=== PATIENT | female | born 1960 | race African-American/Black ===

== ENCOUNTER 2017-09-21 06:06 | Day surgery (SDC) | payer MEDICAID ==
[~2017-09-21] VITALS: Ht 162.6 cm; Wt 54.4 kg
[~2017-09-21 06:06] MED LIST: CARI350T27 PO; CYPR4TAB33 PO; FERR325T6 PO; NITR0.4T49 SL; PANT40TA4 PO; TYLENOL #4 PO
[2017-09-21] MEDS ORDERED: SKIN ADHESIVE 0.7 GM EA TOP ONE (06:59)
[2017-09-21] MEDS ORDERED: BUPIVACAINE HCL/PF 0.5% (5MG/ML) 10ML ONE (07:00)
[2017-09-21] MEDS ORDERED: PROPOFOL 200MG/20ML VIAL IV ONE ×2 (07:16→08:13)
[2017-09-21] MEDS: LACTATED RINGERS 1,000 ML IV SCH ×2 (07:35→07:36)
[2017-09-21] MEDS ORDERED: FENTANYL CITRATE/PF 50MCG/ML 2ML VIAL ONE (07:35)
[2017-09-21] MEDS ORDERED: ONDANSETRON HCL 4MG/2ML VIAL ONE (08:35)
[2017-09-21] MEDS ORDERED: ONDANSETRON HCL 4MG/2ML VIAL IM PRN (09:00)
[2017-09-21] MEDS ORDERED: LABETALOL 5MG/ML SYR 20 MG/4 ML SYRINGE IV PRN (09:00)
[2017-09-21] MEDS ORDERED: FENTANYL CITRATE/PF 50MCG/ML 2ML VIAL IV PRN (09:00)
[2017-09-21 09:59] VITALS: BP 140/78
== END 2017-09-21 11:00 | disposition home or self-care (01) ==
LOC: OR 06:06
PROVIDERS: ATTEND Surgery
DX: D17.21 Benign lipomatous neoplasm of skin and subcutaneous tissue of right arm (principal); M79.89 Other specified soft tissue disorders; Z98.890 Other specified postprocedural states; Z79.899 Other long term (current) drug therapy; I10 Essential (primary) hypertension; J45.909 Unspecified asthma, uncomplicated; D64.89 Other specified anemias; F17.210 Nicotine dependence, cigarettes, uncomplicated
CPT/HCPCS: 25073; 88304; C1768; G0168; J2405; J3010; J3490; J7120; J2704

== ENCOUNTER 2018-01-27 19:28 | Inpatient (IN) | payer MEDICAID ==
[~2018-01-27] VITALS: Ht 162.6 cm; Wt 53.5 kg
[~2018-01-27 19:28] MED LIST changes: -CYPR4TAB33 PO; +CYPR4TAB43 PO
[2018-01-27] MEDS ORDERED: ONDANSETRON HCL 4MG/2ML VIAL IV STA (19:53)
[2018-01-27] MEDS ORDERED: SODIUM CHLORIDE 0.9% 1,000 ML IV ONE ×2 (19:53→21:32)
[2018-01-27] MEDS ORDERED: FAMOTIDINE 20MG/2ML VIAL IV STA (19:53)
[2018-01-27] MEDS ORDERED: MORPHINE SULFATE 4 MG/ML CPJ (NOT FOR IM USE) IV STA (19:53)
[2018-01-27 20:58] LABS: BASOPHILS % 0.4 % (0.0-2.0); EOSINOPHILS % 0.1 % (0.0-5.0); HEMATOCRIT. 39.5 % (36.0-48.0); HEMOGLOBIN. 13.3 g/dL (12.0-16.0); LYMPHOCYTES % 14.4 % (20.0-50.0); MEAN CORPUSCULAR HEMOGLOBIN 28.2 pg (28.0-32.0); MEAN CORPUSCULAR VOLUME 83.8 fL (81.0-99.0); MEAN PLATELET VOLUME 8.6 fl (7.4-10.4); MONOCYTES % 3.5 % (2.0-8.0); NEUTROPHILS % 81.6 % (40.0-76.0); PLATELET 409 x1000/uL (130-400); RED BLOOD CELL COUNT 4.71 mill/uL (4.2-5.4); RED CELL DISTRIBUTION WIDTH 13.4 % (11.6-14.6)
[2018-01-27 21:01] LABS: CHLORIDE 105 mEq/L (98-107)
[2018-01-27 21:05] LABS: ETHANOL BLOOD < 10 mg/dL
[2018-01-27] MEDS ORDERED: LORAZEPAM 2MG/ML CPJ IV NR (21:15)
[2018-01-27 21:33] LABS: CLARITY URINE CLOUDY (CLEAR); COLOR URINE YELLOW (YELLOW); KETONES URINE 3+ (NEGATIVE); LEUKOCYTE ESTERASE URINE TRACE (NEGATIVE); NITRITE URINE NEGATIVE (NEGATIVE); OCCULT BLOOD URINE NEGATIVE (NEGATIVE); PROTEIN URINE TRACE (NEGATIVE); SPECIFIC GRAVITY URINE 1.024 (1.005-1.030); UROBILINOGEN URINE 0.2 E.U./dL (0.2-1.0)
[2018-01-27 21:45] LABS: *AMPHETAMINES SCREEN URINE NEGATIVE (NEGATIVE); *BARBITURATES SCREEN URINE NEGATIVE (NEGATIVE); *BENZODIAZEPINES SCREEN URINE NEGATIVE (NEGATIVE); *COCAINE SCREEN URINE NEGATIVE (NEGATIVE); METHADONE URINE SCREEN NEGATIVE (NEGATIVE); OPIATES URINE SCREEN PRESUMTIVE POSITIVE (NEGATIVE)
[2018-01-27 21:46] LABS: CANNABINOID URINE SCREEN PRESUMTIVE POSITIVE (NEGATIVE); PHENCYCLIDINE URINE SCREEN NEGATIVE (NEGATIVE)
[2018-01-27] MEDS ORDERED: IOHEXOL-300 100 ML BOTTLE ONE (21:56)
[2018-01-27] MEDS ORDERED: SODIUM CHLORIDE 0.9% 1,000 ML IV SCH (23:33)
[2018-01-27] MEDS ORDERED: ACETAMINOPHEN 650MG/20.3ML UDC GT PRN (23:45)
[2018-01-27] MEDS ORDERED: ACETAMINOPHEN 650MG SUPP PR PRN (23:45)
[2018-01-27] MEDS ORDERED: MAGNESIUM/ALUMINUM HYDROXIDE/SIMETHICONE 30ML UDC PO PRN (23:45)
[2018-01-27] MEDS ORDERED: DEXTROSE 50% WATER 50ML SYRINGE IV PRN (23:45)
[2018-01-27] MEDS ORDERED: DOCUSATE SODIUM 100MG CAPSULE PO PRN (23:45)
[2018-01-27] MEDS ORDERED: IPRATROPIUM/ALBUTEROL 0.5-3(2.5)MG/3ML NEB INH PRN (23:45)
[2018-01-27] MEDS ORDERED: DIPHENHYDRAMINE 50MG/ML VIAL IV PRN (23:45)
[2018-01-27] MEDS ORDERED: HYDROCODONE/ACETAMINOPHEN 5/325MG TABLET PO PRN (23:45)
[2018-01-27] MEDS ORDERED: ACETAMINOPHEN 325MG TABLET PO PRN (23:45)
[2018-01-27] MEDS ORDERED: ONDANSETRON HCL 4MG/2ML VIAL IV PRN (23:45)
[2018-01-27] MEDS ORDERED: NA PHOS,M-B/NA PHOS,DI-BA ENEMA 118ML PR PRN (23:45)
[2018-01-27] MEDS ORDERED: GUAIFENESIN 200MG/10ML SUGAR FREE UDC PO PRN (23:45)
[2018-01-27] MEDS ORDERED: CLONIDINE 0.1MG TABLET PO PRN (23:45)
[2018-01-28] VITALS (7 sets, daily range): BP systolic 100–138; BP diastolic 46–92
[2018-01-28] MEDS: HYDROCODONE/ACETAMINOPHEN 10/325MG TABLET PO PRN ×2 (02:37→17:50)
[2018-01-28] MEDS: SODIUM CHLORIDE 0.45% 1,000 ML IV SCH ×2 (03:08→16:19)
[2018-01-28 06:01] LABS: BASOPHILS % 0.5 % (0.0-2.0); HEMATOCRIT. 35.8 % (36.0-48.0); HEMOGLOBIN. 12.1 g/dL (12.0-16.0); LYMPHOCYTES % 23.9 % (20.0-50.0); MEAN CORPUSCULAR HEMOGLOBIN 28.3 pg (28.0-32.0); MEAN PLATELET VOLUME 8.7 fl (7.4-10.4); MONOCYTES % 7.7 % (2.0-8.0); NEUTROPHILS % 67.9 % (40.0-76.0); PLATELET 352 x1000/uL (130-400); RED BLOOD CELL COUNT 4.26 mill/uL (4.2-5.4); RED CELL DISTRIBUTION WIDTH 13.7 % (11.6-14.6)
[2018-01-28] MEDS: SODIUM CHLORIDE 0.9% INJ 3ML FLUSH IVF SCH ×2 (06:03→12:22)
[2018-01-28 06:06] LABS: CHLORIDE 108 mEq/L (98-107)
[2018-01-28 06:13] LABS: LDL CHOLESTEROL 154 mg/dL (5-100)
[2018-01-28 06:14] LABS: HDL CHOLESTEROL 53 mg/dL (40-59)
[2018-01-28] MEDS: BLOOD SUGAR DIAGNOSTIC STRIP TEST SCH ×3 (06:38→17:44)
[2018-01-28] MEDS: INSULIN LISPRO 100 UNITS/ML SUBCUT SCH ×3 (07:50→17:44)
[2018-01-28] MEDS ORDERED: FAMOTIDINE 20MG/2ML VIAL IV SCH (09:00)
[2018-01-28] MEDS ORDERED: PNEUMOCOCCAL 23-VAL P-SAC VAC 0.5 ML IM ONE (10:00)
[2018-01-28] MEDS ORDERED: OMEPRAZOLE 20MG CAPSULE EXTENDED RELEASE PO SCH (15:15)
[2018-01-28] MEDS ORDERED: POTASSIUM CHLORIDE 20MEQ TABLET SR PO NR (18:45)
== END 2018-01-28 19:15 | disposition home or self-care (01) | DRG 241 ==
LOC: ER 19:55 → 6WST 23:34 → EDBEDREQ 01-28 00:02 → ENRESERV 01-28 01:28
PROVIDERS: ADMIT Family Medicine; ATTEND Family Medicine
DX: K29.70 Gastritis, unspecified, without bleeding (principal); F10.10 Alcohol abuse, uncomplicated; F17.210 Nicotine dependence, cigarettes, uncomplicated; F12.90 Cannabis use, unspecified, uncomplicated; I10 Essential (primary) hypertension; K21.9 Gastro-esophageal reflux disease without esophagitis; I25.2 Old myocardial infarction; Z79.899 Other long term (current) drug therapy
CPT/HCPCS: 36415; 71045; 74177; 80053; 80061; 80305; 81003; 82962; 83036; 83605; 83690; 85025; 90732; G0482; J2060; J2270; J2405; J3490; J7030; Q9967

== ENCOUNTER 2018-06-11 05:41 | Day surgery (SDC) | payer MEDICAID ==
[~2018-06-11] VITALS: Ht 162.6 cm; Wt 54.4 kg
[~2018-06-11 05:41] MED LIST changes: +LACTATED RINGERS 1,000 ML IV SCH
[2018-06-11] MEDS ORDERED: INDOCYANINE GREEN 25 MG VIAL IV ONE (06:09)
[2018-06-11] MEDS ORDERED: SKIN ADHESIVE 0.7 GM EA TOP ONE (06:09)
[2018-06-11] MEDS ORDERED: BUPIVACAINE HCL 0.5% (5MG/ML) 50ML ONE (06:09)
[2018-06-11 06:29] LABS: CLARITY URINE CLEAR (CLEAR); COLOR URINE YELLOW (YELLOW); KETONES URINE NEGATIVE (NEGATIVE); LEUKOCYTE ESTERASE URINE 3+ (NEGATIVE); NITRITE URINE NEGATIVE (NEGATIVE); OCCULT BLOOD URINE NEGATIVE (NEGATIVE); PH URINE 7.5 (4.5-8.0); PROTEIN URINE NEGATIVE (NEGATIVE); SPECIFIC GRAVITY URINE 1.012 (1.005-1.030); UROBILINOGEN URINE 0.2 E.U./dL (0.2-1.0)
[2018-06-11] MEDS ORDERED: PROPOFOL 200MG/20ML VIAL IV ONE (07:35)
[2018-06-11] MEDS ORDERED: ROCURONIUM BROMIDE 10MG/ML VIAL 5ML IV ONE (07:35)
[2018-06-11] MEDS ORDERED: FENTANYL CITRATE/PF 50MCG/ML 2ML VIAL ONE ×3 (07:35→08:18)
[2018-06-11] MEDS ORDERED: MIDAZOLAM HCL 2 MG/2 ML VIAL ONE (07:35)
[2018-06-11] MEDS ORDERED: NEOSTIGMINE METHYLSULFATE 1MG/ML 10 ML VIAL ONE (07:35)
[2018-06-11] MEDS ORDERED: EPHEDRINE SULFATE 50MG/ML VIAL ONE (07:36)
[2018-06-11] MEDS ORDERED: SUCCINYLCHOLINE CHLORIDE 200MG/10ML IV ONE (07:36)
[2018-06-11] MEDS ORDERED: GLYCOPYRROLATE 0.2 MG/ML 2ML VIAL ONE (07:36)
[2018-06-11] MEDS ORDERED: PHENYLEPHRINE HCL 10 MG/ML 1ML (IV VIAL) IV ONE (07:36)
[2018-06-11] MEDS ORDERED: SODIUM CHLORIDE 0.9% 10ML VIAL ONE (07:36)
[2018-06-11] MEDS ORDERED: ONDANSETRON HCL 4MG/2ML INJ ONE (07:36)
[2018-06-11] MEDS ORDERED: CEFAZOLIN SODIUM 1000MG/VIAL ONE (07:36)
[2018-06-11] MEDS ORDERED: METOCLOPRAMIDE HCL 10MG/2ML VIAL ONE (07:36)
[2018-06-11] MEDS ORDERED: ATOR40TA70 PO (08:07)
[2018-06-11] MEDS ORDERED: SODIUM CHLORIDE 0.9% 1,000 ML IV ONE (09:55)
[2018-06-11] MEDS ORDERED: ONDANSETRON HCL 4MG/2ML INJ IV PRN (10:00)
[2018-06-11] MEDS ORDERED: HYDROMORPHONE HCL/PF 2MG/ML CPJ IV PRN (10:00)
[2018-06-11] MEDS ORDERED: MEPERIDINE HCL/PF 25MG/ML CPJ IV PRN ×2 (10:00)
[2018-06-11] MEDS ORDERED: MORPHINE SULFATE 4 MG/ML CPJ (NOT FOR IM USE) IV PRN (10:00)
[2018-06-11] MEDS: HYDROMORPHONE HCL/PF 2MG/ML CPJ IV PRN ×3 (10:01→10:27)
[2018-06-11] MEDS: ONDANSETRON HCL 4MG/2ML INJ IV PRN ×2 (10:18→12:32)
[2018-06-11] MEDS ORDERED: HYDROCODONE/ACETAMINOPHEN 5/325MG TABLET PO PRN (11:00)
[2018-06-11 12:21] VITALS: BP 179/102
[2018-06-11] MEDS ORDERED: HYDROCODONE/ACETAMINOPHEN 5/325MG TABLET PO SCH (12:45)
== END 2018-06-11 13:25 | disposition home or self-care (01) ==
LOC: OR 05:41
PROVIDERS: ATTEND Surgery
DX: K81.1 Chronic cholecystitis (principal); I11.9 Hypertensive heart disease without heart failure; Z90.49 Acquired absence of other specified parts of digestive tract; Z87.891 Personal history of nicotine dependence
CPT/HCPCS: 47562; 71045; 81003; 88304; 93005; A4216; J0330; J0690; J1170; J2175; J2250; J2370; J2405; J2710; J2765; J3010; J3490; S2900; J2704; Q9957

== ENCOUNTER 2018-09-02 02:26 | Emergency (ER) | payer MEDICAID ==
[~2018-09-02] VITALS: Ht 160 cm; Wt 48.0 kg
[~2018-09-02 02:26] MED LIST changes: +ATOR40TA70 PO; -CARI350T27 PO; -CYPR4TAB43 PO; -LACTATED RINGERS 1,000 ML IV SCH; -TYLENOL #4 PO
[2018-09-02] MEDS ORDERED: MORPHINE SULFATE 4 MG/ML CPJ (NOT FOR IM USE) IV STA (08:53)
[2018-09-02] MEDS ORDERED: FAMOTIDINE 20MG/2ML VIAL IV STA (08:53)
[2018-09-02] MEDS ORDERED: SODIUM CHLORIDE 0.9% 1,000 ML IV ONE (08:53)
[2018-09-02] MEDS ORDERED: ONDANSETRON HCL 4MG/2ML INJ IV STA (08:53)
[2018-09-02 09:21] LABS: CLARITY URINE CLEAR (CLEAR); COLOR URINE YELLOW (YELLOW); KETONES URINE 1+ (NEGATIVE); LEUKOCYTE ESTERASE URINE 1+ (NEGATIVE); NITRITE URINE NEGATIVE (NEGATIVE); OCCULT BLOOD URINE NEGATIVE (NEGATIVE); PH URINE 8.5 (4.5-8.0); PROTEIN URINE TRACE (NEGATIVE); SPECIFIC GRAVITY URINE 1.021 (1.005-1.030); UROBILINOGEN URINE 0.2 E.U./dL (0.2-1.0)
[2018-09-02 09:29] LABS: BASOPHILS % 0.5 % (0.0-2.0); HEMATOCRIT. 41.7 % (36.0-48.0); HEMOGLOBIN. 13.5 g/dL (12.0-16.0); LYMPHOCYTES % 10.6 % (20.0-50.0); MEAN CORPUSCULAR VOLUME 83.2 fL (81.0-99.0); MEAN PLATELET VOLUME 8.8 fl (7.4-10.4); MONOCYTES % 3.7 % (2.0-8.0); NEUTROPHILS % 85.2 % (40.0-76.0); PLATELET 332 x1000/uL (130-400); RED BLOOD CELL COUNT 5.01 mill/uL (4.2-5.4); RED CELL DISTRIBUTION WIDTH 14.5 % (11.6-14.6)
[2018-09-02 09:33] LABS: CHLORIDE 107 mEq/L (98-107)
[2018-09-02 09:35] LABS: INR 1.2; PROTHROMBIN TIME 11.9 sec (9.1-11.1)
[2018-09-02] MEDS ORDERED: IOHEXOL-300 100 ML BOTTLE ONE (12:06)
[2018-09-02 13:30] VITALS: BP 158/94
== END 2018-09-02 13:50 | disposition home or self-care (01) ==
LOC: ER 02:26
DX: N39.0 Urinary tract infection, site not specified (principal); Z90.49 Acquired absence of other specified parts of digestive tract; Z87.19 Personal history of other diseases of the digestive system
CPT/HCPCS: 36415; 74176; 80053; 81003; 83690; 85025; 85610; 96361; 96374; 96375; 99284; J2270; J2405; J3490; J7030; Z7610; Q9967

== ENCOUNTER 2019-02-19 09:40 | Emergency (ER) | payer MEDICAID ==
[~2019-02-19] VITALS: Ht 162.6 cm; Wt 53.0 kg
[2019-02-19] MEDS ORDERED: SODIUM CHLORIDE 0.9% 1,000 ML IV ONE (10:25)
[2019-02-19] MEDS ORDERED: ONDANSETRON HCL 4MG/2ML INJ IV STA (10:25)
[2019-02-19] MEDS ORDERED: MORPHINE SULFATE 4 MG/ML CPJ (NOT FOR IM USE) IV STA (10:25)
[2019-02-19 10:51] LABS: BASOPHILS % 0.6 % (0.0-2.0); EOSINOPHILS % 0.1 % (0.0-5.0); HEMATOCRIT. 43.5 % (36.0-48.0); HEMOGLOBIN. 14.3 g/dL (12.0-16.0); LYMPHOCYTES % 13.8 % (20.0-50.0); MEAN CORPUSCULAR HEMOGLOBIN 27.5 pg (28.0-32.0); MEAN CORPUSCULAR VOLUME 83.3 fL (81.0-99.0); MEAN PLATELET VOLUME 8.7 fl (7.4-10.4); NEUTROPHILS % 81.5 % (40.0-76.0); PLATELET 364 x1000/uL (130-400); RED BLOOD CELL COUNT 5.22 mill/uL (4.2-5.4); RED CELL DISTRIBUTION WIDTH 14.1 % (11.6-14.6)
[2019-02-19 11:48] LABS: CHLORIDE 108 mEq/L (98-107)
[2019-02-19] MEDS ORDERED: IOHEXOL-300 100 ML BOTTLE ONE (12:44)
[2019-02-19 13:39] LABS: CLARITY URINE CLOUDY (CLEAR); COLOR URINE YELLOW (YELLOW); KETONES URINE 1+ (NEGATIVE); LEUKOCYTE ESTERASE URINE NEGATIVE (NEGATIVE); NITRITE URINE NEGATIVE (NEGATIVE); OCCULT BLOOD URINE NEGATIVE (NEGATIVE); PROTEIN URINE NEGATIVE (NEGATIVE); SPECIFIC GRAVITY URINE 1.017 (1.005-1.030); UROBILINOGEN URINE 0.2 E.U./dL (0.2-1.0)
[2019-02-19] MEDS ORDERED: METOCLOPRAMIDE HCL 10MG/2ML VIAL IV ONE (13:45)
[2019-02-19 15:16] VITALS: BP 152/81
== END 2019-02-19 15:25 | disposition home or self-care (01) ==
LOC: ER 10:29
DX: R10.13 Epigastric pain (principal); R11.2 Nausea with vomiting, unspecified; Z90.49 Acquired absence of other specified parts of digestive tract; Z87.19 Personal history of other diseases of the digestive system; Z79.899 Other long term (current) drug therapy
CPT/HCPCS: 36415; 74177; 80053; 81003; 83690; 85025; 93005; 96361; 96374; 96375; 99284; J2270; J2405; J2765; J7030; Q9967

== ENCOUNTER 2019-07-08 05:08 | Emergency (ER) | payer MEDICAID ==
[~2019-07-08] VITALS: Ht 165.1 cm; Wt 65.0 kg
[2019-07-08] MEDS ORDERED: DICYCLOMINE 10 MG/5 ML ORAL SYR PO STA (06:29)
[2019-07-08] MEDS ORDERED: ONDANSETRON HCL 4MG/2ML INJ IV STA (06:29)
[2019-07-08] MEDS ORDERED: FAMOTIDINE 20MG/2ML VIAL IV STA (06:29)
[2019-07-08] MEDS ORDERED: MAGNESIUM/ALUMINUM HYDROXIDE/SIMETHICONE 30ML UDC PO STA (06:29)
[2019-07-08] MEDS ORDERED: VISCOUS LIDOCAINE 2% 15 ML UDC PO STA (06:29)
[2019-07-08] MEDS ORDERED: SODIUM CHLORIDE 0.9% 1,000 ML IV ONE (06:29)
[2019-07-08 06:48] LABS: BASOPHILS % 0.6 % (0.0-2.0); CHLORIDE 104 mEq/L (98-107); HEMATOCRIT. 44.5 % (36.0-48.0); HEMOGLOBIN. 14.3 g/dL (12.0-16.0); LYMPHOCYTES % 11.3 % (20.0-50.0); MEAN CORPUSCULAR HEMOGLOBIN 26.7 pg (28.0-32.0); MEAN CORPUSCULAR VOLUME 83.3 fL (81.0-99.0); MEAN PLATELET VOLUME 9.6 fl (7.4-10.4); MONOCYTES % 4.3 % (2.0-8.0); NEUTROPHILS % 83.8 % (40.0-76.0); PLATELET 329 x1000/uL (130-400); RED BLOOD CELL COUNT 5.35 mill/uL (4.2-5.4); RED CELL DISTRIBUTION WIDTH 14.5 % (11.6-14.6)
[2019-07-08 06:58] LABS: INR 1.1; PROTHROMBIN TIME 11.3 sec (9.6-11.0)
[2019-07-08] MEDS ORDERED: MORPHINE SULFATE 4 MG/ML CPJ (NOT FOR IM USE) IV STA (07:29)
[2019-07-08] MEDS ORDERED: ONDANSETRON HCL 4MG/2ML INJ IV ONE (08:00)
[2019-07-08 09:46] LABS: CLARITY URINE CLEAR (CLEAR); COLOR URINE YELLOW (YELLOW); KETONES URINE 1+ (NEGATIVE); LEUKOCYTE ESTERASE URINE NEGATIVE (NEGATIVE); NITRITE URINE NEGATIVE (NEGATIVE); OCCULT BLOOD URINE NEGATIVE (NEGATIVE); PH URINE >=9.0 (4.5-8.0); PROTEIN URINE TRACE (NEGATIVE); SPECIFIC GRAVITY URINE 1.019 (1.005-1.030); UROBILINOGEN URINE 0.2 E.U./dL (0.2-1.0)
[2019-07-08] MEDS ORDERED: SODIUM CHLORIDE 0.9% 1,000 ML IV SCH (12:32)
[2019-07-08] MEDS ORDERED: IPRATROPIUM/ALBUTEROL 0.5-3(2.5)MG/3ML NEB NEB PRN (12:45)
[2019-07-08] MEDS ORDERED: ONDANSETRON HCL 4MG/2ML INJ IV PRN (12:45)
[2019-07-08] MEDS ORDERED: HYDROCODONE/ACETAMINOPHEN 5/325MG TABLET PO PRN (12:45)
[2019-07-08] MEDS ORDERED: ENOXAPARIN 40MG/0.4ML SYR SUBCUT SCH (12:45)
[2019-07-08] MEDS ORDERED: DOCUSATE SODIUM 100MG CAPSULE PO PRN (12:45)
[2019-07-08] MEDS ORDERED: PIPERACILLIN/TAZ 3.375G PREMIX 50 ML IV SCH (12:45)
[2019-07-08] MEDS ORDERED: MAGNESIUM/ALUMINUM HYDROXIDE/SIMETHICONE 30ML UDC PO PRN (12:45)
[2019-07-08] MEDS ORDERED: ACETAMINOPHEN 325MG TABLET PO PRN (12:45)
[2019-07-08] MEDS ORDERED: CLONIDINE 0.1MG TABLET PO PRN (12:45)
[2019-07-08 15:30] VITALS: BP 115/64
[2019-07-08 15:42] LABS: CHLORIDE 107 mEq/L (98-107)
[2019-07-08 15:51] LABS: CREATINE KINASE 62 IU/L (26-192); CREATINE KINASE MB FRACTION < 1.0 ng/mL (0.5-3.6)
[2019-07-08] MEDS ORDERED: AMOX1TAB16 MT (16:26)
[2019-07-08] MEDS ORDERED: METF-414 MT (16:26)
[2019-07-09 10:28] LABS: *BARBITURATES SCREEN URINE NEGATIVE (NEGATIVE); *COCAINE SCREEN URINE PRESUMTIVE POSITIVE (NEGATIVE)
[2019-07-09 10:29] LABS: *AMPHETAMINES SCREEN URINE NEGATIVE (NEGATIVE); *BENZODIAZEPINES SCREEN URINE NEGATIVE (NEGATIVE); CANNABINOID URINE SCREEN PRESUMTIVE POSITIVE (NEGATIVE); METHADONE URINE SCREEN NEGATIVE (NEGATIVE); OPIATES URINE SCREEN PRESUMTIVE POSITIVE (NEGATIVE); PHENCYCLIDINE URINE SCREEN NEGATIVE (NEGATIVE)
== END 2019-07-08 16:00 | disposition home or self-care (01) ==
LOC: ER 05:08 → EDBEDREQ 12:33 → EDBEDREQSVC 15:17 → ER 16:00 → CANBEDREQ 17:25
DX: R10.9 Unspecified abdominal pain (principal); D72.829 Elevated white blood cell count, unspecified; R73.03 Prediabetes; I10 Essential (primary) hypertension; I25.2 Old myocardial infarction
CPT/HCPCS: 36415; 74176; 80048; 80053; 80305; 81003; 82550; 82553; 83036; 83690; 83735; 84484; 85025; 85610; 87040; 87086; 93970; 96374; 96375; 96376; 99284; J2270; J2405; J3490; J7030

== ENCOUNTER 2019-08-23 11:23 | Emergency (ER) | payer MEDICAID ==
[~2019-08-23] VITALS: Ht 165.1 cm; Wt 75.0 kg
[~2019-08-23 11:23] MED LIST changes: +AMOX1TAB16 MT; +METF-414 MT
[2019-08-23] MEDS ORDERED: ONDANSETRON HCL 4MG/2ML INJ IV STA (11:37)
[2019-08-23] MEDS ORDERED: MORPHINE SULFATE 4 MG/ML CPJ (NOT FOR IM USE) IV ONE (12:00)
[2019-08-23 12:08] LABS: BASOPHILS % 0.2 % (0.0-2.0); EOSINOPHILS % 0.2 % (0.0-5.0); HEMATOCRIT. 43.2 % (36.0-48.0); HEMOGLOBIN. 14.2 g/dL (12.0-16.0); LYMPHOCYTES % 9.5 % (20.0-50.0); MEAN CORPUSCULAR HEMOGLOBIN 27.4 pg (28.0-32.0); MEAN CORPUSCULAR VOLUME 83.2 fL (81.0-99.0); MEAN PLATELET VOLUME 8.6 fl (7.4-10.4); MONOCYTES % 3.2 % (2.0-8.0); NEUTROPHILS % 86.9 % (40.0-76.0); PLATELET 315 x1000/uL (130-400); RED BLOOD CELL COUNT 5.19 mill/uL (4.2-5.4); RED CELL DISTRIBUTION WIDTH 14.6 % (11.6-14.6)
[2019-08-23 12:15] LABS: CHLORIDE 104 mEq/L (98-107)
[2019-08-23 12:48] LABS: CLARITY URINE CLOUDY (CLEAR); COLOR URINE YELLOW (YELLOW); KETONES URINE 3+ (NEGATIVE); LEUKOCYTE ESTERASE URINE TRACE (NEGATIVE); NITRITE URINE NEGATIVE (NEGATIVE); OCCULT BLOOD URINE NEGATIVE (NEGATIVE); PH URINE >=9.0 (4.5-8.0); PROTEIN URINE 1+ (NEGATIVE); SPECIFIC GRAVITY URINE 1.022 (1.005-1.030); UROBILINOGEN URINE 0.2 E.U./dL (0.2-1.0)
[2019-08-23] MEDS ORDERED: CEFTRIAXONE 1 G PREMIX 50 ML IV NR (13:15)
[2019-08-23] MEDS ORDERED: IOHEXOL-350 100 ML BOTTLE ONE (14:20)
[2019-08-23 14:44] VITALS: BP 147/50
== END 2019-08-23 14:57 | disposition home or self-care (01) ==
LOC: ER 11:23
DX: R10.9 Unspecified abdominal pain (principal); R11.10 Vomiting, unspecified; K59.00 Constipation, unspecified; I10 Essential (primary) hypertension; I25.10 Atherosclerotic heart disease of native coronary artery without angina pectoris; Z90.49 Acquired absence of other specified parts of digestive tract; Z79.899 Other long term (current) drug therapy
CPT/HCPCS: 36415; 71045; 74174; 76705; 80053; 81003; 83690; 83880; 84484; 85025; 93005; 96365; 96375; 99285; J0696; J2270; J2405; Q9967

== ENCOUNTER 2021-08-05 21:32 | Emergency (ER) | payer MEDICAID ==
[~2021-08-05] VITALS: Ht 165.1 cm; Wt 61.0 kg
[~2021-08-05 21:32] MED LIST changes: -PANT40TA4 PO; +PANT40TA51 PO
[2021-08-05] MEDS ORDERED: ONDANSETRON HCL 4MG/2ML INJ IV STA (22:13)
[2021-08-05] MEDS ORDERED: SODIUM CHLORIDE 0.9% 1,000 ML IV ONE (22:15)
[2021-08-05 22:48] LABS: BASOPHILS % 0.5 % (0.0-2.0); EOSINOPHILS % 0.6 % (0.0-5.0); HEMATOCRIT. 40.8 % (36.0-48.0); HEMOGLOBIN. 13.3 g/dL (12.0-16.0); MEAN CORPUSCULAR HEMOGLOBIN 27.6 pg (28.0-32.0); MEAN CORPUSCULAR VOLUME 84.7 fL (81.0-99.0); MEAN PLATELET VOLUME 9.2 fl (7.4-10.4); MONOCYTES % 4.3 % (2.0-8.0); NEUTROPHILS % 80.6 % (40.0-76.0); PLATELET 288 x1000/uL (130-400); RED BLOOD CELL COUNT 4.81 mill/uL (4.2-5.4); RED CELL DISTRIBUTION WIDTH 14.6 % (11.6-14.6)
[2021-08-05] MEDS ORDERED: HALOPERIDOL LACTATE 5MG/ML VIAL IM ONE (23:00)
[2021-08-05 23:06] LABS: CHLORIDE 109 mEq/L (98-107)
[2021-08-06] MEDS ORDERED: METRONIDAZOLE 500 MG PREMIX 100 ML IV ONE (00:15)
[2021-08-06] MEDS ORDERED: CEFTRIAXONE 1 G PREMIX 50 ML IV ONE (00:15)
[2021-08-06] MEDS ORDERED: METOCLOPRAMIDE HCL 10MG/2ML VIAL IV ONE (01:45)
[2021-08-06] MEDS ORDERED: SODIUM CHLORIDE 0.9% 1,000 ML IV ONE (02:45)
[2021-08-06] MEDS ORDERED: DIPHENHYDRAMINE 50MG/ML VIAL IV NR (02:45)
[2021-08-06 03:04] VITALS: BP 143/41
[2021-08-06 06:41] LABS: CLARITY URINE CLOUDY (CLEAR); COLOR URINE YELLOW (YELLOW); KETONES URINE TRACE (NEGATIVE); LEUKOCYTE ESTERASE URINE NEGATIVE (NEGATIVE); NITRITE URINE NEGATIVE (NEGATIVE); OCCULT BLOOD URINE NEGATIVE (NEGATIVE); PH URINE 7.5 (4.5-8.0); PROTEIN URINE NEGATIVE (NEGATIVE); UROBILINOGEN URINE 0.2 E.U./dL (0.2-1.0)
[2021-08-06 07:15] LABS: *AMPHETAMINES SCREEN URINE NEGATIVE (NEGATIVE); *BARBITURATES SCREEN URINE NEGATIVE (NEGATIVE); *BENZODIAZEPINES SCREEN URINE NEGATIVE (NEGATIVE); *COCAINE SCREEN URINE PRESUMTIVE POSITIVE (NEGATIVE); CANNABINOID URINE SCREEN PRESUMTIVE POSITIVE (NEGATIVE); METHADONE URINE SCREEN NEGATIVE (NEGATIVE); OPIATES URINE SCREEN PRESUMTIVE POSITIVE (NEGATIVE); PHENCYCLIDINE URINE SCREEN NEGATIVE (NEGATIVE)
== END 2021-08-06 04:46 | disposition short-term general hospital (02) ==
LOC: ER 21:32
DX: R11.2 Nausea with vomiting, unspecified (principal); K52.9 Noninfective gastroenteritis and colitis, unspecified; F12.10 Cannabis abuse, uncomplicated; D72.829 Elevated white blood cell count, unspecified; Z90.49 Acquired absence of other specified parts of digestive tract; Z79.899 Other long term (current) drug therapy; Z20.822 Contact with and (suspected) exposure to COVID-19
CPT/HCPCS: 36415; 71045; 74176; 80053; 80305; 80320; 81003; 82962; 83690; 84484; 85025; 87426; 93005; 96361; 96365; 96368; 96372; 96375; 99285; J0696; J1200; J1630; J2405; J2765; J3490; J7030; G0480

== ENCOUNTER 2022-01-09 13:54 | Emergency (ER) | payer MEDICAID, OTHER ==
[~2022-01-09] VITALS: Ht 162.6 cm; Wt 54.0 kg
[2022-01-09] MEDS ORDERED: ONDANSETRON HCL 4MG/2ML INJ IV STA ×2 (14:50→17:23)
[2022-01-09] MEDS ORDERED: MORPHINE SULFATE 4 MG/ML CPJ (NOT FOR IM USE) IV STA ×2 (14:50→17:23)
[2022-01-09] MEDS ORDERED: FAMOTIDINE 20MG/2ML VIAL IV STA (14:50)
[2022-01-09] MEDS ORDERED: SODIUM CHLORIDE 0.9% 1,000 ML IV ONE (15:00)
[2022-01-09 15:15] LABS: CHLORIDE 108 mEq/L (98-107)
[2022-01-09 15:20] LABS: BASOPHILS % 0.8 % (0.0-2.0); EOSINOPHILS % 0.1 % (0.0-5.0); HEMATOCRIT. 44.1 % (36.0-48.0); HEMOGLOBIN. 13.9 g/dL (12.0-16.0); LYMPHOCYTES % 10.7 % (20.0-50.0); MEAN CORPUSCULAR HEMOGLOBIN 27.2 pg (28.0-32.0); MEAN CORPUSCULAR VOLUME 86.3 fL (81.0-99.0); MEAN PLATELET VOLUME 7.6 fl (7.4-10.4); MONOCYTES % 3.8 % (2.0-8.0); NEUTROPHILS % 84.6 % (40.0-76.0); PLATELET 357 x1000/uL (130-400); RED BLOOD CELL COUNT 5.11 mill/uL (4.2-5.4); RED CELL DISTRIBUTION WIDTH 15.7 % (11.6-14.6)
[2022-01-09] MEDS ORDERED: VISCOUS LIDOCAINE 2% 15 ML UDC PO STA (17:01)
[2022-01-09] MEDS ORDERED: MAGNESIUM/ALUMINUM HYDROXIDE/SIMETHICONE 30ML UDC PO STA (17:01)
[2022-01-09] MEDS ORDERED: HALOPERIDOL LACTATE 5MG/ML VIAL IM ONE (17:30)
[2022-01-09 22:00] VITALS: BP 112/76
== END 2022-01-09 23:30 | disposition left against medical advice (07) ==
LOC: ER 13:54 → CANBEDREQ 01-10 11:32
DX: R10.84 Generalized abdominal pain (principal); Z87.19 Personal history of other diseases of the digestive system; F17.290 Nicotine dependence, other tobacco product, uncomplicated; F12.10 Cannabis abuse, uncomplicated; R73.9 Hyperglycemia, unspecified
CPT/HCPCS: 36415; 74176; 80053; 83690; 85025; 96361; 96372; 96374; 96375; 96376; 99285; J1630; J2270; J2405; J3490

== ENCOUNTER 2022-03-30 10:47 | Emergency (ER) | payer OTHER ==
[~2022-03-30] VITALS: Ht 162.6 cm; Wt 50.0 kg
[~2022-03-30 10:47] MED LIST changes: +ONDA4TAB50 MT; +PROT40 MT
[2022-03-30] MEDS ORDERED: AMOX1TAB16 MT (12:10)
[2022-03-30] MEDS ORDERED: IBUP-2029 MT (12:10)
[2022-03-30 12:14] VITALS: BP 115/73
[2022-03-30] MEDS ORDERED: DEXAMETHASONE 4MG/ML 1ML VIAL IM ONE (12:15)
[2022-03-30] MEDS ORDERED: IBUPROFEN 600MG TABLET PO ONE (12:15)
[2022-03-30] MEDS ORDERED: AMOXICILLIN/POTASSIUM CLAVULANATE 875/125MG TAB PO ONE (12:15)
== END 2022-03-30 12:35 | disposition home or self-care (01) ==
LOC: ER 10:47
DX: J02.9 Acute pharyngitis, unspecified (principal); J35.1 Hypertrophy of tonsils; I10 Essential (primary) hypertension
CPT/HCPCS: 87070; 87430; 96372; 99283; J1100

== ENCOUNTER 2022-04-07 07:10 | Emergency (ER) | payer OTHER ==
[~2022-04-07] VITALS: Ht 172.7 cm; Wt 59.0 kg
[~2022-04-07 07:10] MED LIST changes: +IBUP-2029 MT
[2022-04-07] MEDS ORDERED: ONDANSETRON HCL 4MG/2ML INJ IV STA (07:27)
[2022-04-07] MEDS ORDERED: KETOROLAC 60MG/2ML VIAL IM STA (07:27)
[2022-04-07 09:19] LABS: BASOPHILS % 0.5 % (0.0-2.0); EOSINOPHILS % 1.7 % (0.0-5.0); HEMATOCRIT. 40.8 % (36.0-48.0); HEMOGLOBIN. 13.4 g/dL (12.0-16.0); LYMPHOCYTES % 16.3 % (20.0-50.0); MEAN CORPUSCULAR HEMOGLOBIN 27.7 pg (28.0-32.0); MEAN CORPUSCULAR VOLUME 84.1 fL (81.0-99.0); MEAN PLATELET VOLUME 8.3 fl (7.4-10.4); MONOCYTES % 5.3 % (2.0-8.0); NEUTROPHILS % 76.2 % (40.0-76.0); PLATELET 398 x1000/uL (130-400); RED BLOOD CELL COUNT 4.84 mill/uL (4.2-5.4); RED CELL DISTRIBUTION WIDTH 14.8 % (11.6-14.6)
[2022-04-07 10:11] LABS: INR 1.1; PROTHROMBIN TIME 11.5 sec (9.6-11.0)
[2022-04-07 10:14] LABS: CHLORIDE 112 mEq/L (98-107)
[2022-04-07 14:43] VITALS: BP 111/49
== END 2022-04-07 15:36 | disposition short-term general hospital (02) ==
LOC: ER 07:10
DX: R10.84 Generalized abdominal pain (principal); R59.0 Localized enlarged lymph nodes; J02.9 Acute pharyngitis, unspecified; D25.9 Leiomyoma of uterus, unspecified; R19.7 Diarrhea, unspecified
CPT/HCPCS: 36415; 70490; 71045; 74176; 80053; 83690; 85025; 85610; 96372; 96374; 99285; J1885; J2405

== ENCOUNTER 2022-07-23 10:30 | Emergency (ER) | payer OTHER ==
[~2022-07-23] VITALS: Ht 157.5 cm; Wt 64.0 kg
[2022-07-23] MEDS ORDERED: ONDANSETRON HCL 4MG/2ML INJ IV STA (10:40)
[2022-07-23] MEDS ORDERED: SODIUM CHLORIDE 0.9% 1,000 ML IV ONE (10:45)
[2022-07-23 11:00] LABS: BASOPHILS % 0.8 % (0.0-2.0); EOSINOPHILS % 0.1 % (0.0-5.0); HEMATOCRIT. 31.2 % (36.0-48.0); HEMOGLOBIN. 9.8 g/dL (12.0-16.0); LYMPHOCYTES % 11.9 % (20.0-50.0); MEAN CORPUSCULAR HEMOGLOBIN 26.5 pg (28.0-32.0); MEAN CORPUSCULAR VOLUME 84.3 fL (81.0-99.0); MEAN PLATELET VOLUME 6.3 fl (7.4-10.4); MONOCYTES % 5.7 % (2.0-8.0); NEUTROPHILS % 81.5 % (40.0-76.0); PLATELET 982 x1000/uL (130-400); RED CELL DISTRIBUTION WIDTH 16.4 % (11.6-14.6)
[2022-07-23 11:08] LABS: CHLORIDE 103 mEq/L (98-107)
[2022-07-23] MEDS ORDERED: KETOROLAC 15MG/ML VIAL IV ONE (17:45)
[2022-07-23 18:12] VITALS: BP 165/85
== END 2022-07-23 17:16 | disposition short-term general hospital (02) ==
LOC: ER 10:30 → CANBEDREQ 18:52
DX: R10.9 Unspecified abdominal pain (principal); R11.10 Vomiting, unspecified; Z85.89 Personal history of malignant neoplasm of other organs and systems; Z90.49 Acquired absence of other specified parts of digestive tract; Z92.21 Personal history of antineoplastic chemotherapy; Z98.890 Other specified postprocedural states; Z20.822 Contact with and (suspected) exposure to COVID-19
CPT/HCPCS: 36415; 71045; 74176; 80053; 83690; 85025; 87426; 93005; 96361; 96374; 96375; 99285; C9803; J1885; J2405; J7030; Z7610

== ENCOUNTER 2022-12-31 19:17 | Emergency (ER) | payer OTHER ==
[~2022-12-31] VITALS: Ht 157.5 cm; Wt 55.0 kg
[2022-12-31 19:21] VITALS: O2SAT 98
[2022-12-31 19:52] LABS: HEMATOCRIT. 36.3 % (36.0-48.0); HEMOGLOBIN. 11.9 g/dL (12.0-16.0); MEAN CORPUSCULAR HEMOGLOBIN 27.9 pg (28.0-32.0); MEAN CORPUSCULAR VOLUME 85.1 fL (81.0-99.0); MEAN PLATELET VOLUME 6.8 fl (7.4-10.4); PLATELET 324 x1000/uL (130-400); RED BLOOD CELL COUNT 4.26 mill/uL (4.2-5.4); RED CELL DISTRIBUTION WIDTH 14.5 % (11.6-14.6)
[2022-12-31 19:59] LABS: CHLORIDE 100 mEq/L (98-107)
[2022-12-31] MEDS ORDERED: ONDANSETRON HCL 4MG/2ML INJ IV ONE (20:15)
[2022-12-31] MEDS ORDERED: SODIUM CHLORIDE 0.9% 1,000 ML IV ONE (20:45)
[2022-12-31 20:49] LABS: PLATELET ESTIMATE NORMAL
[2022-12-31] MEDS ORDERED: MORPHINE SULFATE 4 MG/ML CPJ (NOT FOR IM USE) IV ONE (22:15)
[2022-12-31 23:58] VITALS: BP 127/22; PULSE 74; RESP 16; TEMP 98.4
== END 2023-01-01 00:07 | disposition short-term general hospital (02) ==
LOC: ER 19:17
DX: R11.2 Nausea with vomiting, unspecified (principal); Z85.9 Personal history of malignant neoplasm, unspecified; Z90.49 Acquired absence of other specified parts of digestive tract; Z79.899 Other long term (current) drug therapy
CPT/HCPCS: 80053; 83690; 85025; 36415; 96361; 96374; 96375; 99285; J2405; J2270; J7030; Z7610 ×2

== ENCOUNTER → 2024-03-16 | Emergency (ER) | payer MEDICAID ==
[~2024-03-16] VITALS: Ht 157.5 cm; Wt 60.0 kg
[~2024-03-16] MED LIST changes: +ALBU18HF2 PO; +ATOR10TA69 PO; -ATOR40TA70 PO; +CARI350T27 PO; +CHOL2000 PO; +CYCL10TA21 PO; +CYPR4TAB43 PO; +ESTR1TAB17 PO; -FERR325T6 PO; +GABA-532 PO; +KETOROLAC 30MG/ML VIAL IM STA; -METF-414 MT; +OMEP20CA14 PO; +ONDA-241 MT; -ONDA4TAB50 MT; -PANT40TA51 PO; -PROT40 MT
[2024-03-16 11:59] VITALS: O2SAT 100
[2024-03-16 12:59] LABS: CHLORIDE 103 mEq/L (98-107); POTASSIUM 3.5 mEq/L (3.5-5.1); SODIUM 136 mEq/L (136-145)
[2024-03-16 13:00] LABS: CALCIUM 10.9 mg/dL (8.7-10.4); CARBON DIOXIDE 27 mEq/L (21-32)
[2024-03-16 13:05] LABS: CREATININE 0.8 mg/dL (0.6-1.0); GLUCOSE 121 mg/dL (70-105); UREA NITROGEN BLOOD 6 mg/dL (9-23)
[2024-03-16 13:06] LABS: BASOPHILS % 0.3 % (0.0-2.0); EOSINOPHILS % 0.9 % (0.0-5.0); HEMATOCRIT. 39.2 % (36.0-48.0); LYMPHOCYTES % 11.1 % (20.0-50.0); MEAN CORPUSCULAR HGB CONC 33.2 g/dL (31.0-37.0); MEAN CORPUSCULAR VOLUME 87.3 fL (81.0-99.0); MEAN PLATELET VOLUME 8.3 fl (7.4-10.4); NEUTROPHILS % 78.7 % (40.0-76.0); PLATELET 316 x1000/uL (130-400); RED BLOOD CELL COUNT 4.49 mill/uL (4.2-5.4); RED CELL DISTRIBUTION WIDTH 13.7 % (11.6-14.6); WHITE BLOOD COUNT 9.1 x1000/uL (4.5-11.0)
[2024-03-16] MEDS: KETOROLAC 30MG/ML VIAL IM NR (15:03)
[2024-03-16] MEDS: SODIUM CHLORIDE 0.9% 500 ML IV ONE (15:03)
[2024-03-16 15:04] VITALS: BP 140/78; PULSE 99; RESP 14; TEMP 36.78072; O2SAT 100
== END ==
LOC: ER 11:53
DX: K12.2 Cellulitis and abscess of mouth (principal); Z79.899 Other long term (current) drug therapy; Z90.49 Acquired absence of other specified parts of digestive tract
CPT/HCPCS: 99285; 70486; 80048; 83605; 85025; 36415; 96372; J1885; J7040

== ENCOUNTER 2024-05-20 02:08 | Emergency (ER) | payer MEDICAID ==
[~2024-05-20] VITALS: Ht 165.1 cm; Wt 55.0 kg
[~2024-05-20 02:08] MED LIST changes: -AMOX1TAB16 MT; -CARI350T27 PO; -CHOL2000 PO; -CYCL10TA21 PO; -CYPR4TAB43 PO; -ESTR1TAB17 PO; -GABA-532 PO; -IBUP-2029 MT; -KETOROLAC 30MG/ML VIAL IM STA; -ONDA-241 MT
[2024-05-20 02:15] VITALS: O2SAT 100
[2024-05-20] MEDS: DIPHENHYDRAMINE 25MG CAPSULE PO NR (05:23)
[2024-05-20] MEDS: DIPHENHYDRAMINE 25MG CAPSULE PO ONE (05:23)
[2024-05-20] MEDS: KETOROLAC 15MG/ML VIAL IM NR (05:23)
[2024-05-20] MEDS: KETOROLAC 15MG/ML VIAL IM ONE (05:23)
[2024-05-20] MEDS: METOCLOPRAMIDE HCL 10MG TABLET PO NR (05:23)
[2024-05-20] MEDS: METOCLOPRAMIDE HCL 10MG TABLET PO ONE (05:24)
[2024-05-20] MEDS ORDERED: NAPR-1176 MT (05:31)
[2024-05-20] MEDS ORDERED: LIDO700A15 TP (05:31)
[2024-05-21] MEDS: DIPHENHYDRAMINE 12.5MG/5ML UDC PO ONE (03:34)
[2024-05-21] MEDS: METOCLOPRAMIDE HCL 10MG TABLET PO ONE (03:34)
[2024-05-21] MEDS: KETOROLAC 15MG/ML VIAL IM ONE (03:42)
[2024-05-21 03:45] VITALS: BP 155/77; PULSE 87; RESP 16; TEMP 36.72516; O2SAT 100
== END 2024-05-21 04:14 | disposition home or self-care (01) ==
LOC: ER 02:08
DX: C14.0 Malignant neoplasm of pharynx, unspecified (principal); M62.838 Other muscle spasm; Z79.1 Long term (current) use of non-steroidal anti-inflammatories (NSAID); Z79.899 Other long term (current) drug therapy; Z90.49 Acquired absence of other specified parts of digestive tract
CPT/HCPCS: 99284; 96372 ×2; Q0163 ×2; J8597 ×2; J1885 ×2